=== PATIENT | male | born 1960 | race Two or more races ===

== ENCOUNTER 2020-03-06 11:04 | Inpatient (IN) | payer MEDICAID, MEDICARE ==
[~2020-03-06] VITALS: Ht 162.6 cm; Wt 57.2 kg
[2020-03-06 11:46] LABS: BASOPHILS % 1.1 % (0.0-2.0); EOSINOPHILS % 3.4 % (0.0-5.0); HEMATOCRIT. 36.2 % (42.0-52.0); HEMOGLOBIN. 11.8 g/dL (14.0-18.0); LYMPHOCYTES % 16.8 % (20.0-50.0); MEAN CORPUSCULAR HEMOGLOBIN 32.7 pg (28.0-32.0); MEAN CORPUSCULAR VOLUME 99.9 fL (80.0-94.0); MEAN PLATELET VOLUME 8.4 fl (7.4-10.4); MONOCYTES % 11.8 % (2.0-8.0); NEUTROPHILS % 66.9 % (40.0-76.0); PLATELET 84 x1000/uL (130-400); RED BLOOD CELL COUNT 3.62 mill/uL (4.7-6.1); RED CELL DISTRIBUTION WIDTH 14.8 % (11.6-14.6)
[2020-03-06 11:52] LABS: CHLORIDE 100 mEq/L (98-107)
[2020-03-06 11:54] LABS: PROTHROMBIN TIME 11.1 sec (9.6-11.0)
[2020-03-06 12:40] LABS: BG CARBOXYHEMOGLOBIN 0.5 % (0.5-1.5); BG DEOXYHEMOGLOBIN 4.9 % (0.0-5.0); BG FRACTION INSPIRED OXYGEN 40; BG METHEMOGLOBIN 0.3 % (0.0-1.5); BG OXYGEN SATURATION 95.1 % (92.0-98.5); BG OXYHEMOGLOBIN 94.3 % (94.0-97.0); BG PCO2 57.1 mmHg (35.0-45.0); BG PH 7.324 (7.350-7.450); BG PO2 83.5 mmHg (75.0-100.0); BG SAMPLE SITE RIGHT RADIAL; BG TOTAL HEMOGLOBIN 11.6 g/dL (12.0-18.0); BG VENT MODE NASAL CANNULA
[2020-03-06] MEDS ORDERED: AZITHROMYCIN 500 MG in DEXT 5% WATER 250 ML IV STA (15:23)
[2020-03-06] MEDS ORDERED: PIPERACILLIN/TAZOBACTAM 3.375GM/50ML PREMIX IV ONE (15:30)
[2020-03-06] MEDS ORDERED: PIPERACILLIN/TAZ 3.375G PREMIX 50 ML IV NR (15:30)
[2020-03-06] MEDS ORDERED: ACETAMINOPHEN 325MG TABLET PO PRN (16:00)
[2020-03-06] MEDS ORDERED: PIPERACILLIN/TAZ 3.375G PREMIX 50 ML IV SCH ×2 (16:00→23:00)
[2020-03-06] MEDS ORDERED: ONDANSETRON HCL 4MG/2ML INJ IV PRN (16:00)
[2020-03-06] MEDS ORDERED: IPRATROPIUM/ALBUTEROL 0.5-3(2.5)MG/3ML NEB HHN PRN (16:00)
[2020-03-06] MEDS ORDERED: CLONIDINE 0.1MG TABLET PO PRN (16:00)
[2020-03-06 17:00] LABS: PHOSPHORUS 4.3 mg/dL (2.5-4.9)
[2020-03-06] MEDS: VANCOMYCIN 1 G PREMIX 200 ML IV SCH (18:48)
[2020-03-06 21:30] VITALS: BP 103/54
[2020-03-06] MEDS ORDERED: ALBUTEROL 6.7GM HFA INHALER ORI PRN (21:51)
[2020-03-06 22:00] VITALS: BP 103/54
[2020-03-06] MEDS ORDERED: DEXTROSE 50% WATER 50ML SYRINGE IV PRN (22:30)
[2020-03-06] MEDS ORDERED: SEVE800T8 PO (23:49)
[2020-03-06] MEDS ORDERED: METO-396 PO (23:49)
[2020-03-06] MEDS ORDERED: ONDA8TAB6 PO (23:49)
[2020-03-07] MEDS: PIPERACILLIN/TAZOBACTAM 2.25 G in DEXTROSE 5% WATER 50 ML IV SCH ×3 (01:28→17:33)
[2020-03-07 04:00] VITALS: BP 100/58
[2020-03-07 07:11] LABS: BASOPHILS % 1.1 % (0.0-2.0); HEMATOCRIT. 32.9 % (42.0-52.0); LYMPHOCYTES % 9.4 % (20.0-50.0); MEAN CORPUSCULAR HEMOGLOBIN 32.9 pg (28.0-32.0); MEAN CORPUSCULAR VOLUME 98.5 fL (80.0-94.0); MONOCYTES % 11.8 % (2.0-8.0); NEUTROPHILS % 74.7 % (40.0-76.0); PLATELET 80 x1000/uL (130-400); RED BLOOD CELL COUNT 3.34 mill/uL (4.7-6.1); RED CELL DISTRIBUTION WIDTH 14.4 % (11.6-14.6)
[2020-03-07 07:19] LABS: CHLORIDE 100 mEq/L (98-107)
[2020-03-07 07:26] LABS: LDL CHOLESTEROL 85 mg/dL (5-100)
[2020-03-07 07:27] LABS: HDL CHOLESTEROL 50 mg/dL (40-59)
[2020-03-07] MEDS: BLOOD SUGAR DIAGNOSTIC STRIP TEST SCH ×4 (07:45→21:24)
[2020-03-07] MEDS: INSULIN LISPRO 100 UNITS/ML SUBCUT SCH ×4 (08:10→21:00)
[2020-03-07 12:00] VITALS: BP 124/60
[2020-03-07 16:00] VITALS: BP 92/49
[2020-03-07] MEDS ORDERED: AZITHROMYCIN 250 MG in DEXT 5% WATER 250 ML IV SCH ×2 (16:00→17:00)
[2020-03-07] MEDS: VANCOMYCIN 1 G PREMIX 200 ML IV SCH (19:01)
[2020-03-07 19:26] LABS: FOLIC ACID (FOLATE) SERUM 12.5 ng/mL (>5.38)
[2020-03-07 20:00] VITALS: BP 124/49
[2020-03-08] VITALS (8 sets, daily range): BP systolic 70–139; BP diastolic 47–135
[2020-03-08] MEDS: INSULIN LISPRO 100 UNITS/ML SUBCUT SCH ×3 (06:15→17:19)
[2020-03-08] MEDS: BLOOD SUGAR DIAGNOSTIC STRIP TEST SCH ×3 (06:15→17:18)
[2020-03-08 08:32] LABS: BASOPHILS % 1.9 % (0.0-2.0); EOSINOPHILS % 4.7 % (0.0-5.0); HEMATOCRIT. 34.3 % (42.0-52.0); HEMOGLOBIN. 11.3 g/dL (14.0-18.0); LYMPHOCYTES % 11.9 % (20.0-50.0); MEAN CORPUSCULAR HEMOGLOBIN 32.7 pg (28.0-32.0); MEAN CORPUSCULAR VOLUME 99.6 fL (80.0-94.0); MEAN PLATELET VOLUME 8.5 fl (7.4-10.4); MONOCYTES % 11.6 % (2.0-8.0); NEUTROPHILS % 69.9 % (40.0-76.0); PLATELET 85 x1000/uL (130-400); RED BLOOD CELL COUNT 3.45 mill/uL (4.7-6.1); RED CELL DISTRIBUTION WIDTH 14.8 % (11.6-14.6)
[2020-03-08] MEDS ORDERED: AMOX1TAB15 MT (17:34)
[2020-03-08] MEDS ORDERED: AZIT500T8 MT (17:34)
[2020-03-08] MEDS ORDERED: CEFEPIME 1,000 MG in DEXTROSE 5% WATER 50 ML IV SCH (18:00)
== END 2020-03-08 22:00 | disposition home or self-care (01) | DRG 193 ==
LOC: ER 11:04 → 7WST 15:12 → EDBEDREQ 15:21 → EDBEDREQTM 15:21 → EDBEDREQ 18:13 → ENRESERV 18:54 → 6WST 03-08 01:01
PROVIDERS: ADMIT Internal Medicine; ATTEND Internal Medicine
PROC: 5A1D70Z Performance of Urinary Filtration, Intermittent, Less than 6 Hours Per Day (ICD-10-PCS; principal; 2020-03-08)
DX: J18.9 Pneumonia, unspecified organism (principal); N18.6 End stage renal disease; J96.01 Acute respiratory failure with hypoxia; E44.0 Moderate protein-calorie malnutrition; D61.818 Other pancytopenia; I12.0 Hypertensive chronic kidney disease with stage 5 chronic kidney disease or end stage renal disease; E87.70 Fluid overload, unspecified; I95.3 Hypotension of hemodialysis; E11.22 Type 2 diabetes mellitus with diabetic chronic kidney disease; E87.6 Hypokalemia; D72.821 Monocytosis (symptomatic); G90.8 Other disorders of autonomic nervous system; Z68.21 Body mass index [BMI] 21.0-21.9, adult; Z20.828 Contact with and (suspected) exposure to other viral communicable diseases; D53.9 Nutritional anemia, unspecified; Z99.2 Dependence on renal dialysis
CPT/HCPCS: 36415; 36600; 71045; 80048; 80053; 80061; 80202; 82375; 82607; 82746; 82805; 82962; 83036; 83735; 83880; 84100; 84443; 84484; 85025; 87635; 87804; 93005; 96365; 99285; J0456; J0692; J2543; J3370; J7060

== ENCOUNTER 2020-03-25 12:32 | Emergency (ER) | payer MEDICARE ==
[~2020-03-25] VITALS: Ht 175.3 cm; Wt 59.0 kg
[~2020-03-25 12:32] MED LIST: AMOX1TAB15 MT; AZIT500T8 MT; METO-396 PO; ONDA8TAB6 PO; SEVE800T8 PO
[2020-03-25] MEDS ORDERED: AMLO10TA80 PO (12:45)
[2020-03-25] MEDS ORDERED: FAMO20TA8 PO (12:45)
[2020-03-25] MEDS ORDERED: CALC600T12 PO (12:45)
[2020-03-25] MEDS ORDERED: CLON0.3T PO (12:45)
[2020-03-25] MEDS ORDERED: FOLI0.8T23 PO (12:50)
[2020-03-25] MEDS ORDERED: ISOS20TA57 PO (12:50)
[2020-03-25] MEDS ORDERED: METO-396 PO (12:50)
[2020-03-25] MEDS ORDERED: HYDR100T26 PO (12:50)
[2020-03-25] MEDS ORDERED: INSU100I28 SQ (12:50)
[2020-03-25] MEDS ORDERED: LABE200T28 PO (12:50)
[2020-03-25] MEDS ORDERED: SUCR500T PO (12:50)
[2020-03-25] MEDS ORDERED: SEVE800T8 PO (12:50)
[2020-03-25] MEDS ORDERED: INSASP SUBCUT (12:50)
[2020-03-25] MEDS ORDERED: GLYB5TAB7 PO (12:50)
[2020-03-25] MEDS ORDERED: LISI40TA4 PO (12:50)
[2020-03-25 13:37] LABS: BASOPHILS % 1.9 % (0.0-2.0); EOSINOPHILS % 3.4 % (0.0-5.0); HEMATOCRIT. 40.2 % (42.0-52.0); HEMOGLOBIN. 13.2 g/dL (14.0-18.0); LYMPHOCYTES % 15.2 % (20.0-50.0); MEAN CORPUSCULAR HEMOGLOBIN 32.8 pg (28.0-32.0); MEAN CORPUSCULAR VOLUME 99.9 fL (80.0-94.0); MEAN PLATELET VOLUME 8.8 fl (7.4-10.4); MONOCYTES % 10.1 % (2.0-8.0); NEUTROPHILS % 69.4 % (40.0-76.0); PLATELET 76 x1000/uL (130-400); RED BLOOD CELL COUNT 4.02 mill/uL (4.7-6.1); RED CELL DISTRIBUTION WIDTH 15.1 % (11.6-14.6)
[2020-03-25 13:46] LABS: CHLORIDE 100 mEq/L (98-107)
[2020-03-25 17:34] LABS: BG CARBOXYHEMOGLOBIN 0.4 % (0.5-1.5); BG DEOXYHEMOGLOBIN 9.2 % (0.0-5.0); BG FRACTION INSPIRED OXYGEN 100; BG HCO3 ACT 24.8 mmol/L (22.0-26.0); BG METHEMOGLOBIN 0.3 % (0.0-1.5); BG OXYGEN SATURATION 90.7 % (92.0-98.5); BG OXYHEMOGLOBIN 90.1 % (94.0-97.0); BG PCO2 63.4 mmHg (35.0-45.0); BG PH 7.211 (7.350-7.450); BG PO2 69.4 mmHg (75.0-100.0); BG SAMPLE SITE RIGHT RADIAL; BG TOTAL HEMOGLOBIN 12.7 g/dL (12.0-18.0); BG VENT MODE MASK - NRB
[2020-03-25 18:00] VITALS: BP 157/96
== END 2020-03-25 18:30 | disposition left against medical advice (07) ==
LOC: ER 12:32
DX: I95.89 Other hypotension (principal); R55 Syncope and collapse; E87.2 Acidosis; J90 Pleural effusion, not elsewhere classified; E11.22 Type 2 diabetes mellitus with diabetic chronic kidney disease; I12.0 Hypertensive chronic kidney disease with stage 5 chronic kidney disease or end stage renal disease; N18.6 End stage renal disease; Z99.2 Dependence on renal dialysis; Z79.4 Long term (current) use of insulin
CPT/HCPCS: 36415; 36600; 71045; 80053; 82375; 82805; 84484; 85025; 93005; 99285